=== PATIENT | male | born 1940 | race Caucasian/White ===

== ENCOUNTER 2023-07-16 06:19 | Day surgery (SDC) | payer OTHER, SELFPAY ==
[2023-07-05 10:12] LABS: Hematocrit 36.1 % (39.0-52.0); Hemoglobin 12.1 g/dL (13.0-18.0); Mean Corp Hgb Conc. 33.5 g/dL (33.0-37.0); Mean Corpuscular Hgb 31.3 pg (27.0-31.0); Mean Corpuscular Volume 93.5 fL (80.0-94.0); Mean Platelet Volume 9.5 fL (7.4-10.4); Platelet Count 301 10^3/uL (130-400); Red Blood Cell Count 3.86 10^6/uL (4.70-6.10); Red Cell Dist. Width 13.1 % (11.5-14.5); White Blood Cell Count 11.7 10^3/uL (4.8-10.8)
[2023-07-05 10:37] LABS: Blood Urea Nitrogen 23 mg/dl (9-20); Calcium 9.3 mg/dl (8.4-10.2); Carbon Dioxide 26 mmol/L (22-30); Chloride 107 mmol/L (98-107); Glucose 98 mg/dl (70-99); Potassium 4.1 mmol/L (3.5-5.1); Sodium 139 mmol/L (135-145); eGFR 59.63
[2023-07-05 10:41] LABS: Urine Albumin 1+ (Neg - Trace); Urine Bilirubin Negative (Negative); Urine Character Very Cloudy (Clear); Urine Color Yellow; Urine Glucose Negative (Negative); Urine Ketone Negative (Negative); Urine Leukocyte 2+ (Negative); Urine Nitrite Negative (Negative); Urine Occult Blood 1+ (Negative); Urine Specific Gravity 1.015 (<1.030); Urine Urobilinogen Negative (Neg - 1+)
[2023-07-05 10:58] LABS: PT 13.2 Sec (11.4-14.6)
[2023-07-05 10:59] LABS: APTT 28.5 Sec (23.4-35.0)
[2023-07-05 11:26] LABS: Urine Bacteria Many (Negative); Urine White Cell 30-40 /HPF (0-5)
[2023-07-05 14:07] VITALS: BMI 24.5
--- NOTE | 2023-07-11 13:42 | PTCARENOTE ---
Krysten at 's office was notified of abnormal urinalysis results collected on 07/05/23.
[2023-07-16] VITALS (12 sets, daily range): BP systolic 108–138; BP diastolic 57–82; BMI 24.5
[2023-07-16] MEDS: CYSVIEW KIT 100 MG INTRAVES (12:20)
[2023-07-16] MEDS: NORMOSOL-R 1000 IV (12:30)
--- NOTE | 2023-07-16 15:06 | W.IMMPOSTOP ---
Surgical Immed Post Op Note
-
Primary Surgeon: Luis Felipe
Pre-op Diagnosis: H/o NMIBC, BPH s/p TURP
Post-op Diagnosis: Same
Procedure Performed:
1. Blue light cystoscopy and fulguration of bladder
2. button vaporization TURP
Anesthesia Type: LMA
Specimen / Cultures: None/None
Estimated Blood Loss: Negligible
Drains: 22Fr 3-way Bautista catheter
Complications: None
Operative Findings:
2 small cystic lesions w/o Cysview uptake @bladder base fulgurated w/ button electrode
completion vaporization of enlarged and coapting lateral lobes of prostate gland (primarily distal prostatic urethra)
excellent hemostasis in no flow low pressure state
no involvement of bilateral UOs, verumontanum, or external urethral sphincter
[2023-07-16] MEDS: DETROL LA 4 MG PO (16:02)
--- NOTE | 2023-07-16 18:22 | PTCARENOTE ---
Pt received from PACU, 3 way montez with CBI intact. Urine is a very light pink tinge, CBI running slow with no clots. Pt is not complaining of any pain, ate 100% of dinner.
[2023-07-16] MEDS: LIPITOR 10 MG PO (20:12)
[2023-07-16] MEDS: OCUVITE SOFTGEL 1 CAP PO (20:13)
[2023-07-16] MEDS: MELATONIN 5 MG PO (20:15)
[2023-07-17 03:53] VITALS: BP 102/49
[2023-07-17 06:55] LABS: % Basophils 0.1 % (0-2); % Immature Granulocytes 0.5 % (0-0.5); % Lymphocytes 3.6 % (20.5-51.1); % Monocytes 3.7 % (1.7-9.3); % Neutrophils 92.1 % (42.2-75.2); Absolute Immature Granulocytes 0.1 10^3/uL (0-0.05); Absolute Lymphocytes 0.6 10^3/uL (1.2-3.4); Absolute Monocytes 0.6 10^3/uL (0.1-0.6); Absolute Neutrophils 15.4 10^3/uL (1.4-6.5); Hematocrit 31.1 % (39.0-52.0); Hemoglobin 10.7 g/dL (13.0-18.0); Mean Corp Hgb Conc. 34.4 g/dL (33.0-37.0); Mean Corpuscular Hgb 31.3 pg (27.0-31.0); Mean Corpuscular Volume 90.9 fL (80.0-94.0); Mean Platelet Volume 9.9 fL (7.4-10.4); Nucleated Red Blood Cells % 0 % (-); Platelet Count 247 10^3/uL (130-400); Red Blood Cell Count 3.42 10^6/uL (4.70-6.10); Red Cell Dist. Width 12.6 % (11.5-14.5); White Blood Cell Count 16.7 10^3/uL (4.8-10.8)
[2023-07-17 06:58] LABS: Blood Urea Nitrogen 25 mg/dl (9-20); Carbon Dioxide 24 mmol/L (22-30); Chloride 103 mmol/L (98-107); Estimated Creatinine Clearance 46 ml/min; Glucose 163 mg/dl (70-99); Potassium 4.5 mmol/L (3.5-5.1); Sodium 135 mmol/L (135-145); eGFR 59.26
[2023-07-17 07:02] VITALS: BP 108/52
--- NOTE | 2023-07-17 09:01 | W.DS.TRANS ---
DC Summary - Sql Report Writer
-
Discharge Instructions:
Sleep Apnea Risk Low
Discharge Diagnosis/Procedures BPH with BISHOP, bladder cancer
s/p button vaporization TURP + blue light cysto/
fulguration
Diet No restrictions
Activity No strenuous activity
Additional Activity No strenuous activity or heavy lifting x7 days
after surgery
Driving Restrictions As prior to admission
Bathing Restrictions None
Blood Work n/a
Others Tests n/a
Wound Care n/a
Instructions:
Stand-Alone Forms:
Changes to Home Medications: No
Discharge Medications:
DC Medications w/original date entered in [facility]
melatonin-pyridoxine HCl (vitamin B6) 3 mg-10 mg tablet 1 ea PO HS PRN sleep 11/13/19
multivitamin with folic acid 400 mcg tablet (Tab-A-Roge) 1 tab PO DAILY Supplement 11/13/19
simvastatin 10 mg tablet 10 mg PO HS High cholesterol 11/13/19
vit C 250 mg-vit E 90 mg-zinc 40 mg-copper 1 [id number] capsule (PreserVision AREDS-2) 1 ea PO BID Supplement 11/13/19
allopurinol 100 mg tablet 100 mg PO DAILY 11/11/21
aspirin 325 mg tablet 325 mg PO DAILY Blood clot prevention/tx 11/11/21
polyethylene glycol 3350 17 gram/dose oral powder (Miralax) 119 gm PO PRN PRN constipation 11/11/21
ibuprofen 800 mg tablet 800 mg PO DAILY 07/13/23
phenazopyridine 200 mg tablet (Pyridium) 200 mg PO BID PRN dysuria 3 days #6 tabs 07/17/23
sulfamethoxazole 800 mg-trimethoprim 160 mg tablet (Bactrim DS) 1 tab PO BID 5 days #10 tabs 07/17/23
Home Medication Changes
Pending Results: No
[2023-07-17] MEDS: THERAGRAN 1 TABLET PO (10:00)
[2023-07-17] MEDS: ZYLOPRIM 100 MG PO (10:00)
[2023-07-17] MEDS: OCUVITE SOFTGEL 1 CAP PO (10:00)
[2023-07-17] MEDS: MOTRIN 800 MG PO (10:00)
--- NOTE | 2023-07-17 11:16 | PTCARENOTE ---
Voided 50ml blood tinged urine. GFU=420gf. Dr. Luis Felipe panda.
--- NOTE | 2023-07-17 11:25 | CM ---
Chart reviewed. Spoke with pt
Pt reports he lives alone in an apartment on his sons property
Has stair glide into apartment. Pt has a cane
Independent, shops, drives
No past SNF/HH
PCP - Dr Oliver
Pharm - [facility]
Has ride home
Plan - Anticipate home - no needs
== END 2023-07-17 13:15 | disposition home or self-care (01) ==
LOC: SDS 06:19
PROVIDERS: ATTENDING PHYSICIAN Surgery
DX: N40.1 Benign prostatic hyperplasia with lower urinary tract symptoms (principal); N13.8 Other obstructive and reflux uropathy; C67.9 Malignant neoplasm of bladder, unspecified
CPT/HCPCS: 52601; 52234; C9738; 36415; 80048; 81003; 81015; 85025; 85027; 85610; 85730; A9589

== ENCOUNTER 2024-01-23 14:02 | Emergency (ER) | payer OTHER, SELFPAY ==
[2024-01-23 14:15] VITALS: BP 137/78
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
[2024-01-23] MEDS: ADACEL 0.5 ML IM (16:25)
[2024-01-23 18:45] VITALS: BP 153/76
[2024-01-23 18:48] VITALS: BP 153/76
== END 2024-01-23 18:48 | disposition home or self-care (01) ==
LOC: EMR 14:02
PROVIDERS: EMERGENCY PHYSICIAN Emergency Medicine
DX: S51.811A Laceration without foreign body of right forearm, initial encounter (principal); S81.811A Laceration without foreign body, right lower leg, initial encounter; Y93.55 Activity, bike riding; Z23 Encounter for immunization; E78.00 Pure hypercholesterolemia, unspecified; I25.10 Atherosclerotic heart disease of native coronary artery without angina pectoris; F17.200 Nicotine dependence, unspecified, uncomplicated; Z79.82 Long term (current) use of aspirin; Z85.51 Personal history of malignant neoplasm of bladder; Z86.61 Personal history of infections of the central nervous system; Z90.49 Acquired absence of other specified parts of digestive tract; Z90.79 Acquired absence of other genital organ(s)
CPT/HCPCS: 99283; 12002; 90471; 73090; 73590; 90715

== ENCOUNTER → 2024-02-01 13:13 | Outpatient (REF) | payer OTHER, SELFPAY | LOC: WOUND 13:13 | PROVIDERS: ATTENDING PHYSICIAN Surgery; FAMILY PHYSICIAN Internal Medicine | DX: S51.801A Unspecified open wound of right forearm, initial encounter (principal); S81.801A Unspecified open wound, right lower leg, initial encounter; V29.31XA Electric (assisted) bicycle (driver) (passenger) injured in unspecified nontraffic accident, initial encounter | CPT/HCPCS: 11042; 11045; 99203 ==

== ENCOUNTER → 2024-02-05 09:13 | Outpatient (REF) | payer OTHER, SELFPAY | LOC: WOUND 09:13 | PROVIDERS: ATTENDING PHYSICIAN Surgery | DX: S51.801A Unspecified open wound of right forearm, initial encounter (principal); S81.801A Unspecified open wound, right lower leg, initial encounter; V29.31XA Electric (assisted) bicycle (driver) (passenger) injured in unspecified nontraffic accident, initial encounter | CPT/HCPCS: 11042 ==

== ENCOUNTER → 2024-02-11 10:52 | Outpatient (REF) | payer OTHER, SELFPAY | LOC: WOUND 10:52 | PROVIDERS: ATTENDING PHYSICIAN Surgery; FAMILY PHYSICIAN Internal Medicine | DX: S51.801A Unspecified open wound of right forearm, initial encounter (principal); S81.801A Unspecified open wound, right lower leg, initial encounter; V29.31XA Electric (assisted) bicycle (driver) (passenger) injured in unspecified nontraffic accident, initial encounter | CPT/HCPCS: 99213 ==